=== PATIENT | male | born 1980 | race Caucasian/White ===

== ENCOUNTER 2021-02-08 21:11 | Emergency (ER) | payer MEDICAID, OTHER ==
[~2021-02-08] VITALS: Ht 180.3 cm; Wt 70.3 kg
[2021-02-08 22:13] LABS: Basophils # (auto) 0.1 10 ^3/uL (0-0.2); Basophils % (auto) 0.5 % (0.0-2.0); Eosinophils # (auto) 0.3 10 ^3/uL (0-0.8); Eosinophils % (auto) 2.2 % (0.0-7.0); Hemoglobin 13.5 g/dL (13.5-17.5); Lymphocytes # (auto) 5.2 10 ^3/uL (0.4-5.4); Lymphocytes % (auto) 40.9 % (10.0-50.0); Mean Corpuscular Hgb Conc. 33.8 g/dL (32.0-36.0); Mean Corpuscular Volume 82.9 fL (80.0-100.0); Monocytes % (auto) 7.8 % (0.0-12.0); Neutrophils # (auto) 6.2 10 ^3/uL (1.6-8.6); Neutrophils % (auto) 48.6 % (37.0-80.0); Nucleated Red Blood Cells % 0.1 %; Platelet Count (auto) 322 10^3/uL (140-450); Red Blood Cells 4.82 10^6/uL (4.5-5.90); Red Cell Distribution Width 18.8 % (11.8-14.3); White Blood Cell 12.7 10^3/uL (4.4-10.8)
[2021-02-08 22:32] LABS: Albumin 3.6 g/dL (3.4-5.0); Calcium 9.2 mg/dL (8.5-10.1); Potassium 3.7 mmol/L (3.5-5.1); Salicylate < 1.7 mg/dL (2.8-20.0)
[2021-02-08 22:33] LABS: Acetaminophen < 2.0 ug/mL (10-30)
[2021-02-08 22:36] LABS: BUN/Creatinine Ratio 18.4; Bilirubin, Total 0.2 mg/dL (0.2-1.0); Total Protein 9.2 g/dL (6.4-8.2)
[2021-02-08] MEDS ORDERED: diphenhdrAMINE HCL 50 MG/1 ML VL IM ONE (23:30)
[2021-02-08] MEDS ORDERED: LORazepam 2MG/ML-1ML VIAL IM ONE (23:30)
[2021-02-09 00:04] LABS: Urine Bacteria FEW /hpf (None Seen); Urine Blood Negative /uL (Negative); Urine Mucus FEW (None Seen); Urine Specific Gravity 1.023 (1.001-1.035); Urine WBC 2 /hpf (0 - 3)
[2021-02-09] MEDS ORDERED: NICOTINE 14 MG/24HR TOPICAL PATCH TD ONE (00:15)
[2021-02-09 00:19] LABS: Alcohol, Urine < 3.0 mg/dL (0-10); Amphetamine Screen, Urine NEGATIVE (NEGATIVE); Barbiturate Scree,Urine NEGATIVE (NEGATIVE); Benzodiazephine Screen, Urine NEGATIVE (NEGATIVE); Cannabinoid Screen, Urine NEGATIVE (NEGATIVE); Cocaine Screen, Urine NEGATIVE (NEGATIVE); Opiate Scree,Urine NEGATIVE (NEGATIVE); Phencyclidine Screen, Urine NEGATIVE (NEGATIVE)
[2021-02-09] MEDS ORDERED: IBUPROFEN 800 MG TAB PO ONE (08:45)
[2021-02-09] MEDS: chlorproMAZINE HCL 25 MG TAB PO SCH ×2 (10:17→22:00)
[2021-02-09] MEDS ORDERED: HALOPERIDOL LACTATE 5 MG/ML INJ VIAL ONE (11:07)
[2021-02-09] MEDS ORDERED: HALOPERIDOL LACTATE 5 MG/ML INJ VIAL IM ONE (11:15)
[2021-02-10] MEDS ORDERED: HALOPERIDOL LACTATE 5 MG/ML INJ VIAL IM ONE (04:15)
[2021-02-10] MEDS ORDERED: diphenhdrAMINE HCL 50 MG/1 ML VL IM ONE ×2 (04:45)
[2021-02-10] MEDS ORDERED: LORazepam 2MG/ML-1ML VIAL IM ONE (04:45)
[2021-02-10] MEDS ORDERED: hydrOXYzine 25 MG TAB or CAP ONE (10:14)
[2021-02-10] MEDS ORDERED: hydrOXYzine 25 MG TAB or CAP PO ONE (10:30)
[2021-02-10] MEDS: chlorproMAZINE HCL 25 MG TAB PO SCH (10:43)
[2021-02-10] MEDS ORDERED: diphenhdrAMINE HCL 25 MG CAP PO ONE (11:15)
[2021-02-10] MEDS ORDERED: diphenhdrAMINE HCL 50 MG/1 ML VL ONE (12:40)
[2021-02-10] MEDS ORDERED: LORazepam 2MG/ML-1ML VIAL IV ONE (14:15)
[2021-02-10] MEDS ORDERED: NICOTINE 14 MG/24HR TOPICAL PATCH TD ONE (14:21)
[2021-02-10 17:00] VITALS: BP 142/82
== END 2021-02-10 17:25 | disposition short-term general hospital (02) ==
LOC: ER 21:15
DX: R45.851 Suicidal ideations (principal); I10 Essential (primary) hypertension; R94.5 Abnormal results of liver function studies; F11.10 Opioid abuse, uncomplicated; F31.9 Bipolar disorder, unspecified; F20.9 Schizophrenia, unspecified; Z20.828 Contact with and (suspected) exposure to other viral communicable diseases; Z98.890 Other specified postprocedural states
CPT/HCPCS: 36415; 71046; 80053; 80307; 80320; 80329; 81001; 83735; 84443; 85025; 93005; 96372; 96374; 99285; C9803; J1200; J1630; J2060; Q0161; U0003